=== PATIENT | male | born 1955 | race Caucasian/White ===

== ENCOUNTER 2024-12-04 08:21 | Emergency (ER) | payer MEDICARE ==
[~2024-12-04] VITALS: Wt 88.9 kg
[2024-12-04] MEDS ORDERED: SODIUM CHLORIDE 0.9% 1,000 ML IV ONE (08:25)
[2024-12-04] MEDS ORDERED: Ondansetron Hydrochloride 4 MG/2 ML VIAL IV ONE ×2 (08:25→19:50)
[2024-12-04] MEDS ORDERED: diazePAM 5 MG TAB PO ONE (08:25)
[2024-12-04 08:36] LABS: BASO # 0.0 10*3/uL (0.0-0.1); BASO % 0.3 % (0.0-1.0); EOS # 0.1 10*3/uL (0.0-0.4); EOS % 0.5 % (1.0-4.0); MEAN CELL VOLUME 91.1 fl (80.0-94.0); MEAN CORPUSCULAR HGB 30.4 pg (27.0-31.0); MEAN PLATELET VOLUME 9.6 fl (9.6-12.3); MONO # 0.6 10*3/uL (0.1-1.0); MONO % 5.2 % (3.0-9.0); NEUT # 9.1 10*3/uL (2.3-7.9); NEUT % 82.3 % (47.0-73.0); NUCLEATED RED BLOOD CELL 0.0 % (0.0-0.0); NUCLEATED RED BLOOD CELL 0.0 10*3/uL (0.0-0.0); PLATELET COUNT AUTOMATED 470 10*3/uL (130-400); RED CELL DISTRI WIDTH 13.2 % (0-14.5)
[2024-12-04 08:51] LABS: BUN 14 mg/dl (9-23)
[2024-12-04] MEDS ORDERED: POTASSIUM CHLORIDE 20 MEQ TAB PO ONE (09:45)
[2024-12-04 12:37] LABS: BILIRUBIN Negative (Negative); BLOOD Negative (Negative); CLARITY Clear (Clear); COLOR Yellow (Yellow); KETONE Negative (Negative); LEUKO ESTERASE Negative (Negative); NITRITE Negative (Negative); PH 7.0 (4.5-8.0); SPECIFIC GRAVITY 1.015 (1.001-1.030); UROBILINOGEN 1.0 E.U./dl (0.0-1.0)
[2024-12-04 12:58] LABS: EPITHELIAL CELLS 0-2; MUCOUS TRACE
== END 2024-12-04 20:02 | disposition short-term general hospital (02) ==
LOC: ED 08:21
PROVIDERS: Emergency Medicine
DX: M48.56XA Collapsed vertebra, not elsewhere classified, lumbar region, initial encounter for fracture (principal); Z88.8 Allergy status to other drugs, medicaments and biological substances; Z88.1 Allergy status to other antibiotic agents